=== PATIENT | male | born 2000 | race Caucasian/White ===

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

== ENCOUNTER 2022-06-15 14:22 | Outpatient (CLI) | payer OTHER, SELFPAY ==
--- NOTE | ~2022-06-15 | XR_ITS ---
EXAMINATION: XR hand LT min 3V DATE: 06/15/2022 14:52 INDICATION: Pain at the left fifth proximal interphalangeal joint TECHNIQUE: Posteroanterior, oblique and lateral views of the left hand were obtained. COMPARISON: None. FINDINGS: Alignment is normal. No fracture. Joint spaces are normal. Soft tissues are unremarkable. No radiopaq ue foreign bodies. IMPRESSION: 1. Negative left hand radiographs. Reviewed, dictated and finalized at location A.
== END 2022-06-15 14:23 | disposition home or self-care (01) ==
PROVIDERS: PCP Family Medicine; Visit Provider Family Medicine
DX: M79.642 Pain in left hand (principal)
CPT/HCPCS: 73130